=== PATIENT | male | born 1950 | race Caucasian/White ===

== ENCOUNTER 2018-12-05 09:00 | Emergency (ER) | payer OTHER, MEDICARE ==
[~2018-12-05] VITALS: Ht 172.7 cm; Wt 108.9 kg
[~2018-12-05 09:00] MED LIST: ASPIR 8181 MG PO; ASPIRIN EC325 MG PO; DIAZEPAM5 MG PO; FINASTERIDE5 MG PO; GLIPIZIDE10 MG PO; HYDROCHLOROTHIA25 MG PO; HYDROCODON-ACE1 EA10 PO; LANTUS100 UNITS/ SUB-Q; LOSARTAN POTASS50 MG PO; METFORMIN HCL1000 MG PO; PRAVASTATIN SOD10 MG PO; VICTOZA 2-0.6 MG/0.1 SUB-Q; ZOFRAN ODT4 MG PO; ZOFRAN ODT8 MG PO
[2018-12-05] MEDS ORDERED: CLOPIDOGREL75 MG PO (12:16)
[2018-12-05] MEDS ORDERED: LIPITOR40 MG PO (12:18)
[2018-12-05] MEDS ORDERED: [UNRECOGNIZED DRUG - SUPPLY] TOP (12:19)
[2018-12-05] MEDS ORDERED: VITAMIN A & D OI5 GM TOP (12:19)
== END 2018-12-05 16:13 | disposition short-term general hospital (02) ==
LOC: ED 09:00
PROC: 0T9B70Z Drainage of Bladder with Drainage Device, Via Natural or Artificial Opening (ICD-10-PCS; principal; 2018-12-05)
DX: E11.52 Type 2 diabetes mellitus with diabetic peripheral angiopathy with gangrene (principal); I96 Gangrene, not elsewhere classified; L03.116 Cellulitis of left lower limb; E87.1 Hypo-osmolality and hyponatremia; I10 Essential (primary) hypertension; Z85.51 Personal history of malignant neoplasm of bladder; Z88.5 Allergy status to narcotic agent; Z79.82 Long term (current) use of aspirin; Z79.4 Long term (current) use of insulin
CPT/HCPCS: 36600; 51702; 71045; 80053; 82803; 83605; 85025; 85651; 86140; 99291; J1170; J2543; J2550; J3370; J7030; J7060

== ENCOUNTER 2019-11-09 18:54 | Emergency (ER) | payer MEDICARE ==
[~2019-11-09] VITALS: Ht 172.7 cm; Wt 108.9 kg
[~2019-11-09 18:54] MED LIST changes: +CLOPIDOGREL75 MG PO; +LIPITOR40 MG PO; +VITAMIN A & D OI5 GM TOP; +[UNRECOGNIZED DRUG - SUPPLY] TOP
[2019-11-09] MEDS ORDERED: HYDROCODON-ACE1 EA10 PO (19:08)
--- NOTE | 2019-11-10 07:44 | EKG ---
[facility] [address] [facility] [place] [address] Signed Sinus rhythm with premature supraventricular complexes Otherwise normal ECG When compared with ECG of 02-MAR-2017 13:38, premature ventricular complexes are no longer present premature supraventricular complexes are now present Confirmed by SIMONE SMALLWOOD MD ([id number]) on 11/10/2019 7:44:07 AM Electronically Signed By: SIMONE SMALLWOOD MD 11/10/19 0744 PATIENT NAME: CAMILO CAMACHO II Electrocardiogram DATE OF : 46 PHYSICIAN: SIMONE SMALLWOOD MD REPORT #: [id number] REPORT IS CONFIDENTIAL AND NOT TO BE RELEASED WITHOUT AUTHORIZATION
== END 2019-11-09 21:08 | disposition home or self-care (01) ==
LOC: ED 18:54
DX: R55 Syncope and collapse (principal); N32.89 Other specified disorders of bladder; I10 Essential (primary) hypertension; E11.9 Type 2 diabetes mellitus without complications; Z88.5 Allergy status to narcotic agent; Z79.899 Other long term (current) drug therapy; Z79.84 Long term (current) use of oral hypoglycemic drugs; Z79.82 Long term (current) use of aspirin
CPT/HCPCS: 80053; 83735; 84484; 85025; 93005; 93010; 96360; 99284-25; J7030

== ENCOUNTER 2019-12-09 07:31 | Emergency (ER) | payer MEDICARE ==
[~2019-12-09] VITALS: Ht 172.7 cm; Wt 108.9 kg
--- OUTSIDE RECORDS SUMMARY | 2019-12-09 07:34 | XMS ---
PreManage Notification: CAMILO CAMACHO Security Liability Claims Manager Events No recent Security Events currently on file CRITERIA MET - [facility] - 2 Visits in 30 Days CARE PROVIDERS Jorgito Warner MD Primary Care Current PHONE: Unknown orjosh Case or Registered Nurse [facility] Mar[facility] Transplant Current PHONE: Unknown [facility] Other Current [facility] PHONE: Unknown Gilberto has no Care Guidelines for this patient. E.D. VISIT COUNT (12 MO.) 1 [facility] 2 [facility] TOTAL 3 NOTE: Visits indicate total known visits. 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) use of aspirin - Other specified disorders of bladder - Essential (primary) hypertension - Other adjunct faculty for medical terminology (current) drug therapy 08/20/2019 11:39 [facility] Jeannie NOLASCO TYPE: Emergency DIAGNOSES: - Poss UTI - Urinary Complaint - Acute cystitis without hematuria INPATIENT VISIT TRACKING (12 MO.) 01/27/2019 16:06 [place] [facility] TYPE: Renal DIAGNOSES: - Other disorder of circulatory system - Unspecified complications of amputation stump - 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
== END 2019-12-09 08:25 | disposition home or self-care (01) ==
LOC: ED 07:31
DX: S01.81XA Laceration without foreign body of other part of head, initial encounter (principal); I10 Essential (primary) hypertension; E11.9 Type 2 diabetes mellitus without complications; Z87.891 Personal history of nicotine dependence; Z79.899 Other long term (current) drug therapy; W06.XXXA Fall from bed, initial encounter
CPT/HCPCS: 12011; 99282-25

== ENCOUNTER 2021-02-16 16:47 | Emergency (ER) | payer MEDICARE ==
[~2021-02-16] VITALS: Ht 172.7 cm; Wt 108.9 kg
--- OUTSIDE RECORDS SUMMARY | 2021-02-16 16:50 | XMS ---
PreManage Notification: CAMILO CAMACHO Security Faculty Head Events No recent Security Events currently on file CRITERIA MET - [facility] - 2 Visits in 30 Days CARE PROVIDERS GONZALEZ LANDA Internal Medicine 12/13/2019-Current PHONE: Unknown Gilberto has no Care Guidelines for this patient. Care History Medical/Surgical 12/13/2019 [facility] \T\middot;\T\nbsp; PATIENT IS A -RECEIVES SERVICES THROUGH ID IN [place]. \T\middot;\T\nbsp; Location: [address], [place] [address]- E.D. VISIT COUNT (12 MO.) 1 [facility] 1 [facility] 1 [facility] TOTAL 3 NOTE: Visits indicate total known visits. ED/UCC VISIT TRACKING (12 MO.) 02/16/2021 16:47 [facility] [place] TYPE: Emergency COMPLAINT: - DIZZINESS 02/13/2021 21:10 [facility] [place] TYPE: Emergency DIAGNOSES: - Chest pain, unspecified - chest pain - Dyspnea, unspecified - Syncope and collapse 10/15/2020 13:38 [facility] [place] TYPE: Emergency DIAGNOSES: - Viral infection, unspecified - CHEST PAIN - Other injury of unspecified body region, initial encounter INPATIENT VISIT TRACKING (12 MO.) No inpatient visits to display in this time frame [id number]
--- NOTE | 2021-02-16 19:24 | EKG ---
[facility] [address] [facility] [place] [address] Signed Sinus rhythm with 1st degree AV block Possible Anterior infarct , age undetermined Abnormal ECG When compared with ECG of 09-NOV-2019 18:58, premature supraventricular complexes are no longer present Confirmed by KAYLIE BERNAL DO ([id number]) on 02/16/2021 7:23:49 PM Electronically Signed By: KAYLIE BERNAL DO 02/16/21 1924 PATIENT NAME: CAMILO CAMACHO SOPHIA Electrocardiogram DATE OF : 46 PHYSICIAN: KAYLIE BERNAL DO REPORT #: [id number] REPORT IS CONFIDENTIAL AND NOT TO BE RELEASED WITHOUT AUTHORIZATION
== END 2021-02-16 21:15 | disposition short-term general hospital (02) ==
LOC: ED 16:47
DX: R55 Syncope and collapse (principal); I21.4 Non-ST elevation (NSTEMI) myocardial infarction; I10 Essential (primary) hypertension; E11.9 Type 2 diabetes mellitus without complications; Z79.4 Long term (current) use of insulin; Z87.891 Personal history of nicotine dependence; Z88.5 Allergy status to narcotic agent; Z79.899 Other long term (current) drug therapy; Z20.822 Contact with and (suspected) exposure to COVID-19; Z85.51 Personal history of malignant neoplasm of bladder
CPT/HCPCS: 80053; 83735; 84484; 85025; 93005; 93010; 96374; 99285-25; C9803; J1644; U0003

== ENCOUNTER 2025-07-29 12:39 | Inpatient (IN) | payer OTHER ==
[~2025-07-29] VITALS: Ht 172.7 cm; Wt 105.1 kg
[~2025-07-29 12:39] MED LIST changes: +ACIDOPHILUS1 EACH PO; +ALAWAY10 ML OU; +AMOX TR-K CLV1 EACH PO; +ASPIRIN81 MG PO; +DULOXETINE HCL40 MG PO; +FLOMAX0.4 MG PO; +GABAPENTIN600 MG PO; +HYDROCODON-ACE1 EA11 PO; +LIPITOR80 MG PO; +MAGNESIUM OXID420 MG PO; -METFORMIN HCL1000 MG PO; +METFORMIN HCL500 MG PO; +NITROSTAT0.4 MG SL; +NOVOLOG100 UNIT/2 SUB-Q; +NYSTATIN15 GM TOP; +OXYBUTYNIN CHLO10 MG PO; +OZEMPIC2 MG/0.75 SUB-Q; +PROSCAR5 MG PO; +REFRESH TEARS15 ML OU; +TOPROL XL50 MG PO; +TYLENOL325 MG PO; +VOLTAREN ARTHRI20 GM TOP; +XARELTO2.5 MG PO
[2025-07-29 13:10] LABS: BASOPHILS 0.2 % (0.2-1.2); EOSINOPHILS 2.8 % (0.8-7.0); LYMPHOCYTES 5.0 % (21.8-53.1); MCH 28.4 PG (25.7-32.2); MCHC 32.1 g/dL (32.3-36.5); MCV 88.4 fL (79.0-92.2); MONOCYTES 4.4 % (5.3-12.2); NEUTROPHILS 87.4 % (34.0-67.9); RBC 5.71 M/uL (4.63-6.08)
[2025-07-29 13:25] LABS: ALT (SGPT) 62.0 U/L (14-59); AST (SGOT) 27.0 U/L (15-37); GLOMERULAR FILTRATION RATE,EST 77.0 mL/min (>60); PROTEIN, TOTAL 8.2 g/dL (6.4-8.2); UREA NITROGEN 19.0 mg/dL (7-18)
[2025-07-29 13:30] LABS: LACTIC ACID, BLOOD 1.3 mmol/L (0.4-2.0)
[2025-07-29 13:39] LABS: BLOOD/HGB, URINE TRACE-I (Negative); KETONE, URINE SMALL (Negative); LEUK ESTERASE, URINE NEGATIVE (negative); NITRITE, URINE POSITIVE (negative)
[2025-07-29 13:44] LABS: EPITHELIAL CELLS, URINE SQUAMOUS 1+ /lpf (0-1+)
[2025-07-29 13:45] LABS: BACTERIA, URINE 3+ /hpf (negative); CASTS, URINE NONE SEEN \\lpf; CRYSTALS, URINE NONE SEEN (0-1+); REFLEX CULTURE, URINE Yes (No)
[2025-07-29 13:58] LABS: CORONAVIRUS COVID-19 AG NEGATIVE (NEGATIVE)
[2025-07-29] MEDS ORDERED: FUROSEMIDE 40 MG/4 ML VIAL IV ONE (14:15)
[2025-07-29] MEDS ORDERED: ACETAMINOPHEN 325 MG TAB PO ONE (14:15)
[2025-07-29] MEDS ORDERED: AZITHROMYCIN 500 MG in DEXTROSE 5% 250 ML IV SCH (14:27)
[2025-07-29] MEDS ORDERED: DEXTROSE 50% 50 ML SYR IV PRN ×2 (14:30)
[2025-07-29] MEDS ORDERED: GLUCAGON,HUMAN RECOMBINANT 1 MG/ML VIAL SUB-Q PRN (14:30)
[2025-07-29] MEDS ORDERED: ACETAMINOPHEN 325 MG TAB PO PRN (14:30)
[2025-07-29] MEDS ORDERED: DEXTROSE 5% 1,000 ML IV PRN (14:30)
[2025-07-29] MEDS ORDERED: IBLOOD GLUCOSE TEST STRIP 1 EA TEST XX PRN (14:30)
[2025-07-29] MEDS ORDERED: ALBUTEROL SULFATE 0.083% 3 ML VIAL INH PRN (15:15)
[2025-07-29] MEDS ORDERED: LIDOCAINE 2% VISCOUS 6 ML SYR TOP ONE (16:15)
[2025-07-29 16:25] VITALS: BP 140/100
[2025-07-29] MEDS ORDERED: INSULIN LISPRO 100 UNIT/ML ML SUB-Q SCH (17:00)
[2025-07-29] MEDS ORDERED: IBLOOD GLUCOSE TEST STRIP 1 EA TEST VI SCH (17:00)
[2025-07-29 17:27] VITALS: BP 140/100
--- NOTE | 2025-07-29 17:33 | NUR ---
PT ARRIVED TO FLOOR @ 1608 VIA STRETCHER FROM ED, AT BEDSIDE. PT AND SPOUSE ORIENTED TO CALL CANCHOLA AND ROOM. ADMISSION AND ASSESSMENT COMPLETED. PT PROVIDED SANDWICH FOR EVENING MEAL. PT NEUROLOGICALLY INTACT, HRR, L/S WITH RALES TO BASES, ABDOMEN SOFT, DENIES PAIN. BILAT 20 G WRIST/HAND IV, SL. VOIDING CLEAR DILUTE URINE WITH MALE PUREWICK.
[2025-07-29 18:54] VITALS: BP 104/59
[2025-07-29] MEDS ORDERED: OXYCODONE/APAP 5/325 TAB PO PRN (19:15)
--- NOTE | 2025-07-29 19:40 | EKG ---
[facility] [address] [facility] [place] [address] Signed Accelerated Junctional rhythm Right axis deviation Abnormal ECG When compared with ECG of 11-DEC-2023 21:35, Junctional rhythm has replaced Sinus rhythm QRS axis shifted right Confirmed by Mary Jo Kline DO ([id number]) on 07/29/2025 7:40:11 PM Electronically Signed By: MARY JO KLINE DO 07/29/251939 PATIENT NAME: CAMILO CAMACHO II Electrocardiogram DATE OF : 46 PHYSICIAN: MARY JO KLINE DO REPORT #: [id number] REPORT IS CONFIDENTIAL AND NOT TO BE RELEASED WITHOUT AUTHORIZATION
[2025-07-29] MEDS ORDERED: INSULIN GLARGINE-YFGN 100 UNIT/ML ML SUB-Q SCH (21:00)
[2025-07-29] MEDS ORDERED: MELATONIN 3 MG TAB PO PRN (21:00)
[2025-07-29 21:09] VITALS: BP 116/63
[2025-07-29 23:21] VITALS: BP 116/63
[2025-07-30] VITALS (11 sets, daily range): BP systolic 100–131; BP diastolic 53–82
--- NOTE | 2025-07-30 00:43 | NUR ---
PT CARED FOR T/O SHIFT. MEDICATED X1 FOR PAIN TO BACK AND LEGS. PT C/O PAIN TO NECK, WARM PACK APPLIED. PT STATES HE USES HEATING PAD WHEN SLEEPING AT HOME. PT NO NEUROLOGICAL DEFICITS. MALE PUREWICK CONTINUES IN USE. SIDERAILS UP X2, CALL CANCHOLA IN REACH, BED IN LOW POSITION AND LOCKED.
--- NOTE | 2025-07-30 01:00 | NUR ---
Pt report received from NEIL Gonzalez. Pt is resting supine in bed eyes closed, breathing is regular, even, and non-labored. Side rails up x4, call light and bedside tables in reach.
--- NOTE | 2025-07-30 01:25 | NUR ---
In with pt for pain med administration and VS. Pt is resting with eyes closed, supine in bed, breathing is regular, even, and non-labored. Side rails up x4, call light in reach, TV on, bedside table and personal belongings in reach. Pt awakens easily to voice. After taking his medication, pt was easily able to fall back to sleep.
[2025-07-30 05:31] LABS: BASOPHILS 0.3 % (0.2-1.2); EOSINOPHILS 4.4 % (0.8-7.0); LYMPHOCYTES 8.6 % (21.8-53.1); MCH 28.0 PG (25.7-32.2); MCHC 31.8 g/dL (32.3-36.5); MCV 88.0 fL (79.0-92.2); MONOCYTES 5.6 % (5.3-12.2); NEUTROPHILS 80.8 % (34.0-67.9); RBC 5.82 M/uL (4.63-6.08)
[2025-07-30 05:46] LABS: GLOMERULAR FILTRATION RATE,EST 76.0 mL/min (>60); UREA NITROGEN 23.0 mg/dL (7-18)
--- NOTE | 2025-07-30 06:25 | NUR ---
PATIENT LAYING IN BED. CALL LIGHT IS WITHIN REACH AND NO FURTHER NEEDS AT THIS TIME.
--- NOTE | 2025-07-30 07:48 | NUR ---
PT RESTING EYES CLOSED AT TIME OF SHIFT REPORT, AWAKE NOW GETTING ECHO. FRESH H20 TO BEDSIDE CALL LIGHT IN REACH. PT DENIES NEEDS OF
[2025-07-30] MEDS ORDERED: ASPIRIN 81 MG CHEW PO SCH (08:00)
--- NOTE | 2025-07-30 08:53 | NUR ---
PATIENT SITTING UP IN BED AT THIS TIME. WHITE BOARD UPDATED. RN IN ROOM. CALL LIGHT IN REACH.
[2025-07-30] MEDS ORDERED: FUROSEMIDE 40 MG/4 ML VIAL IV SCH (09:00)
[2025-07-30] MEDS ORDERED: FINASTERIDE 5 MG TAB PO SCH (09:00)
[2025-07-30] MEDS ORDERED: DULOXETINE HCL 20 MG CAP PO SCH (09:00)
[2025-07-30] MEDS ORDERED: ENOXAPARIN SODIUM 40 MG/0.4 ML SYR SUB-Q SCH (09:00)
[2025-07-30] MEDS ORDERED: TAMSULOSIN HCL 0.4 MG CAP PO SCH (09:00)
[2025-07-30] MEDS ORDERED: CLOPIDOGREL BISULFATE 75 MG TAB PO SCH (09:00)
--- NOTE | 2025-07-30 09:43 | NUR ---
PT EATS 100% OF MORNING MEAL AGREES HE IS COMFORTABLE. HAS ARRIVED SITTING IN RECLINER. PT THINKS HIS BOWELS ARE GOING TO MOVE APPROPRIATE BSC GATHERED WILL TRANSFER TO CHAIR AFTER BM. PT AGREES TO NOTIFY RN OF ANY NEED
--- NOTE | 2025-07-30 09:54 | NUR ---
DR KLINE IN TO SEE PT DISCUSSES PLAN GOING FORWARD ALL QUESTIONS ANSWERED. PT IS PRESENT FOR THE CONVERSTAION.
--- NOTE | 2025-07-30 10:30 | NUR ---
PATIENT SITTING UP IN BED AT THIS TIME, AT BEDSIDE. VITALS AND I&O'S DONE AND CHARTED. CALL LIGHT IN REACH. NO FURTHER NEEDS AT THIS TIME.
--- NOTE | 2025-07-30 11:21 | NUR ---
PT CONTINUES IN BED THIS SHIFT VISITORS PRESENT X3. PT DECLINES NEEDS
--- NOTE | 2025-07-30 11:48 | NUR ---
PT ASKING ABOUT GETTING UP ON CAMMODE WHEN HE IS SUDDENLY NAUSEATED. HAS 150 ML EMESIS CLEAR GREENISH LIQUID. NAUSEA PASSES SOON AFTER
[2025-07-30] MEDS ORDERED: METOPROLOL SUCCINATE 50 MG TABCR PO SCH (11:54)
[2025-07-30] MEDS ORDERED: PHARMACY RENAL DOSE ADJUSTMENT 1 DOSE MISC PO SCH (12:00)
--- NOTE | 2025-07-30 12:45 | NUR ---
PT UP TO BSC USING SLIDER BOARD, HE IS ABLE TO MOVE HIS BOWELS MED HARD STOOL. SENOKOT ORDERED. PT CONTINUES IN BED AT THIS TIME DENIES FURTHER NEEDS
[2025-07-30] MEDS ORDERED: SENNOSIDES/DOCUSATE 1 EA TAB PO SCH (12:46)
--- NOTE | 2025-07-30 14:25 | NUR ---
PT UP TO BSC PASSES HARD STOOL AGAIN. RETURNS TO RESTING IN BED WATCHING TV
--- NOTE | 2025-07-30 14:44 | NUR ---
PATIENT IN BED RESTING AT THIS TIME. VITALS AND I&O'S DONE AND CHARTED. CALL LIGHT IN REACH. NO FURTHER NEEDS AT THIS TIME.
[2025-07-30] MEDS ORDERED: GABAPENTIN 300 MG CAP PO SCH (15:00)
--- NOTE | 2025-07-30 16:29 | NUR ---
PT UP TO BSC WANTS TO SIT FOR AWHILE, AGREES TO USE CALL LIGHT WHEN FINISHED. PT HAS PASSED A LARGE AMOUNT OF HARD FORMED STOOL THIS SHIFT.
--- NOTE | 2025-07-30 17:50 | NUR ---
PATIENT IN BED WATCHING TV AT THIS TIME. VITALS AND I&O'S DONE AND CHARTED. CALL LIGHT IN REACH. NO FURTHER NEEDS AT THIS TIME.
--- NOTE | 2025-07-30 20:59 | NUR ---
Patient in bed watching tv, alert and oriented x3, no acute distress. Patient's vital signs are stable, afebrile. Patient reports 5/10 bilat upper this pain, pt reports chronic. Admin one tab percocet 5/325mg po at this time. Bed alarm intact. Personal supplies and call light within reach.
[2025-07-30] MEDS ORDERED: INSULIN GLARGINE-YFGN 100 UNIT/ML ML SUB-Q SCH (21:00)
[2025-07-30] MEDS ORDERED: MAGNESIUM HYDROXIDE/AL HYDROX 30 ML CUP PO PRN (22:15)
[2025-07-31] VITALS (8 sets, daily range): BP systolic 110–134; BP diastolic 51–62
--- NOTE | 2025-07-31 00:25 | NUR ---
pt resting in bed, call light in reach. report from xiomara savage.
--- NOTE | 2025-07-31 05:19 | NUR ---
pt awakened for labs, denies needs, alert and oriented. coffee provided to pt, white board updated, call light in reach.
[2025-07-31 05:34] LABS: BASOPHILS 0.3 % (0.2-1.2); EOSINOPHILS 4.4 % (0.8-7.0); LYMPHOCYTES 11.9 % (21.8-53.1); MCH 28.0 PG (25.7-32.2); MCHC 32.1 g/dL (32.3-36.5); MCV 87.3 fL (79.0-92.2); MONOCYTES 6.3 % (5.3-12.2); NEUTROPHILS 76.9 % (34.0-67.9); RBC 5.57 M/uL (4.63-6.08)
[2025-07-31 05:44] LABS: GLOMERULAR FILTRATION RATE,EST 77.0 mL/min (>60); UREA NITROGEN 34.0 mg/dL (7-18)
--- NOTE | 2025-07-31 07:37 | NUR ---
PT AWAKE TALKING ON THE PHONE AT TIME OF SHIFT REPORT. CALLL LIGHT AND NEEDED ITEMS IN REACH
--- NOTE | 2025-07-31 08:37 | NUR ---
BREAKFAST WELL TOLERATED ABX INFUSING AT THIS TIME. PT SITTING UP IN BED WATCHING TV DENIES DISCOMFORTS OR NEEDS OF.
--- NOTE | 2025-07-31 09:30 | NUR ---
Spoke with Ed. He states he lives with his in a single story home. They have a wc van, ramp. a manual and power wc, commode, urinals, and bilat lower extremity prosthetics. [facility]. Pt will go home with on DC. He denies other needs. He denies safety or financial concerns. Pt was discussed in 8:30 meeting. He is currently going to OP for therapy. will order therapy to cont. on dc.
--- NOTE | 2025-07-31 09:43 | NUR ---
DC JUSTOWRITER OPERATOR MEETING WITH PT AT THIS TIME
--- NOTE | 2025-07-31 09:59 | NUR ---
PATIENT IN BED WATCHING TV AT THIS TIME. VITALS AND I&O'S DONE AND CHARTED. WAQAR CARE DONE AND NEW PURE WICK PLACED. CALL LIGHT IN REACH. NO FURTHER NEEDS AT THIS TIME.
--- NOTE | 2025-07-31 10:42 | NUR ---
UR CLINICAL REVIEW: MCG-PER MCG REVIEW MEETS INPT FOR UTI WITH NEED FOR IV ABX AND MONITORING [place] [facility] INPT 07/29/25 @ 1429 ORDER MATCHES REG CLINICALS FAXED TO [facility] FOR REVIEW DISCHARGE TO HOME WITH CONTINUED OPPT WHEN STABLE ADD 07/31/25
--- NOTE | 2025-07-31 10:45 | NUR ---
PT RESTING IN BED WATCHING TV. DENIES NEEDS AT THIS TIME. CALL LIGHT AND FRESH H20 AT BEDSIDE
--- NOTE | 2025-07-31 13:08 | NUR ---
PT SITTING UPRIGHT IN BED VISITING ACTIVELY WITH GUEST. NOON MEAL WAS WELL TOLERATED EATEN WITH HIS . DENIES NEEDS AT THIS TIME
--- NOTE | 2025-07-31 14:00 | NUR ---
DR KLINE IN TO SEE PT DISCUSSED PROBABLY DC TOMORROW PT IS IN AGREEMENT. ALL QUESTIONS ANSWERED
--- NOTE | 2025-07-31 15:05 | NUR ---
PATIENT IN BED TALKING WITH VISITOR IN ROOM AT THIS TIME. VITALS AND I&O'S DONE AND CHARTED. CALL LIGHT IN REACH. NO FURTHER NEEDS AT THIS TIME.
--- NOTE | 2025-07-31 16:08 | NUR ---
PT REPORTS HIS PURWIK CAMES LOOSE LINENS ARE WET. BAG AND LINENS BOTH CHANGED. NO OTHER NEEDS AT THIS TIME
--- NOTE | 2025-07-31 17:36 | NUR ---
PT REFUSES EVENING MEAL EXCEPT FOR DESERT, STATES HE IS NOT HUNGRY AFTER HAVING HAD A BURGER FOR LUNCH. SITTING UP IN BED WATCHING SPORTS GAME, IS PRESENT. FRESH H20 PROVIDED DENIES OTHER REQUESTS
--- NOTE | 2025-07-31 18:32 | NUR ---
PATIENT SITTING UP IN BED WATCHING TV. VITALS AND I&O'S DONE AND CHARTED. CALL LIGHT IN REACH. NO FURTHER NEEDS AT THIS TIME.
--- NOTE | 2025-07-31 19:19 | NUR ---
REPORT RECEIVED FROM DAY SHIFT RN. PATIENT RESTING IN BED. DENIES NEEDS AT THIS TIME. CALL LIGHT IN REACH.
[2025-07-31] MEDS ORDERED: INSULIN GLARGINE-YFGN 100 UNIT/ML ML SUB-Q SCH (21:00)
--- NOTE | 2025-07-31 21:00 | NUR ---
PATIENT RESTING IN BED. VS, BS, AND I&Os OBTAINED AND RECORDED. SCHEDULED MEDICATION ADMINISTERED. BOTH IVs FLUSH WNL. PATIENT DENIES FURTHER NEEDS. ASSESSMENT COMPLETE. CALL LIGHT IN REACH.
--- NOTE | 2025-07-31 23:16 | NUR ---
PATIENT RESTING IN BED ON BACK WITH EYES CLOSED. RESPIRATIONS EVEN AND UNLABORED. CALL LIGHT IN REACH.
--- NOTE | 2025-08-01 01:31 | NUR ---
PATIENT RESTING IN BED ON BACK WITH EYES CLOSED. RESPIRATIONS EVEN AND UNLABORED. CALL LIGHT IN REACH.
--- NOTE | 2025-08-01 03:28 | NUR ---
PATIENT RESTING IN BED ON BACK WITH EYES CLOSED. RESPIRATIONS EVEN AND UNLABORED. CALL LIGHT IN REACH.
[2025-08-01 04:20] VITALS: BP 103/60
--- NOTE | 2025-08-01 04:27 | NUR ---
CALL LIGHT ANSWERED. PATIENT REPORTING 04/13 "STUMP" PAIN. PRN PAIN MEDICATION ADMINISTERED. VS AND I&Os OBTAINED AND RECORDED. PATIENT DENIES FURTHER NEEDS AT THIS TIME. CALL LIGHT IN REACH.
[2025-08-01 04:29] VITALS: BP 103/60
[2025-08-01 05:31] LABS: BASOPHILS 0.5 % (0.2-1.2); EOSINOPHILS 6.8 % (0.8-7.0); LYMPHOCYTES 18.8 % (21.8-53.1); MCH 28.0 PG (25.7-32.2); MCHC 32.0 g/dL (32.3-36.5); MCV 87.3 fL (79.0-92.2); MONOCYTES 9.0 % (5.3-12.2); NEUTROPHILS 64.7 % (34.0-67.9); RBC 5.61 M/uL (4.63-6.08)
[2025-08-01 05:50] LABS: ALT (SGPT) 52.0 U/L (14-59); AST (SGOT) 18.0 U/L (15-37); GLOMERULAR FILTRATION RATE,EST 80.0 mL/min (>60); PROTEIN, TOTAL 7.7 g/dL (6.4-8.2); UREA NITROGEN 41.0 mg/dL (7-18)
[2025-08-01] MEDS ORDERED: POTASSIUM CHLORIDE 10 MEQ TABCR PO ONE (07:45)
[2025-08-01 08:26] VITALS: BP 103/48
--- NOTE | 2025-08-01 08:34 | NUR ---
ADMIN ONE TAB PERCOCET 5/325MG PO AT THIS TIME FOR 5/10 BACK PAIN.
[2025-08-01] MEDS ORDERED: CEFPODOXIME PR200 MG PO (09:42)
[2025-08-01] MEDS ORDERED: AZO D-MANNOSE500 M1 PO (09:42)
--- NOTE | 2025-08-01 09:50 | NUR ---
Spoke with Devin. He plans on dc to home today. States his will be here around 10. Updated his dc may be slightly later as the is seeing other pts at this time. Pt states he told his between 10-12. He denies any needs. I discussed with the pt if he also has medicare. He only has [facility]. Pt states he does also have Medicare. IM letter completed with Ed. Home today with when orders completed. will pick him up in their transport van.
--- NOTE | 2025-08-01 10:07 | NUR ---
MED REC COMPLETE
[2025-08-01 10:15] VITALS: BP 118/65
[2025-08-01] MEDS ORDERED: OXYCODONE HCL5 M1 PO (10:21)
[2025-08-01 10:39] VITALS: BP 118/65
== END 2025-08-01 11:45 | disposition home or self-care (01) | DRG 871 ==
LOC: ED 12:39 → MS 14:29
PROVIDERS: Emergency Medicine; ADMIT Student in an Organized Health Care Education/Training Program; ATTEND Student in an Organized Health Care Education/Training Program
DX: A41.9 Sepsis, unspecified organism (principal); J96.01 Acute respiratory failure with hypoxia; N39.0 Urinary tract infection, site not specified; J81.1 Chronic pulmonary edema; I10 Essential (primary) hypertension; E11.9 Type 2 diabetes mellitus without complications; I25.10 Atherosclerotic heart disease of native coronary artery without angina pectoris; E66.9 Obesity, unspecified; Z95.5 Presence of coronary angioplasty implant and graft; Z89.512 Acquired absence of left leg below knee; Z89.511 Acquired absence of right leg below knee; Z79.899 Other long term (current) drug therapy; Z85.51 Personal history of malignant neoplasm of bladder; Z87.891 Personal history of nicotine dependence; Z98.890 Other specified postprocedural states; Z79.4 Long term (current) use of insulin; Z79.01 Long term (current) use of anticoagulants; Z79.84 Long term (current) use of oral hypoglycemic drugs; Z79.85 Long-term (current) use of injectable non-insulin antidiabetic drugs; Z79.82 Long term (current) use of aspirin; Z86.16 Personal history of COVID-19
CPT/HCPCS: 36415; 70450; 71045; 80048; 80053; 81001; 82140; 83605; 83735; 83880; 84443; 85025; 87077; 87088; 87186; 93005; 93010; 93306; 94640; 94667; 94668; 94760; 94799; A6590; A9270; J0456; J0696; J1815; J1938; J7060; U0002